=== PATIENT | female | born 1980 | race Caucasian/White ===

== ENCOUNTER 2017-01-10 02:50 | Inpatient (IN) | payer BC ==
[~2017-01-10] VITALS: Ht 165.1 cm; Wt 70.8 kg
[2017-01-10] MEDS ORDERED: OXYTOCIN/NORMAL SALINE 1,000 ML IV SCH ×2 (02:55→13:17)
[2017-01-10] MEDS ORDERED: NALBUPHINE HCL 10 MG/ML AMP IVP PRN (03:00)
[2017-01-10] MEDS ORDERED: TERBUTALINE SULFATE 1 MG/ML VIAL SUBCUT ONE (03:00)
[2017-01-10 05:12] LABS: BASOPHILS % (AUTO) 0.7 % (0.0-2.0); EOSINOPHILS # (AUTO) 0.1 K/uL (0.0-0.4); EOSINOPHILS % (AUTO) 1.4 % (0.0-4.0); HEMATOCRIT 28.7 % (36-48); LYMPHOCYTES # (AUTO) 2.6 K/uL (1.0-5.5); LYMPHOCYTES % (AUTO) 28.8 % (20.5-51.5); MEAN CORPUSCULAR HEMOGLOBIN 24 pg (27-31); MEAN CORPUSCULAR HGB CONC 31 % (32-36); MEAN CORPUSCULAR VOLUME 75 fL (79.0-98.0); MONOCYTES # (AUTO) 0.6 K/uL (0.0-1.0); MONOCYTES % (AUTO) 7.2 % (1.7-9.3); NEUTROPHILS # (AUTO) 5.5 K/uL (1.8-7.7); NEUTROPHILS % (AUTO) 61.9 % (40.0-70.0); PLATELET COUNT (AUTO) 221 K/uL (130-430); RED BLOOD CELL COUNT(AUTO) 3.81 MIL/uL (4.2-6.2); RED CELL DISTRIBUTION WIDTH 15.3 % (9.0-15.0); WHITE BLOOD COUNT (AUTO) 8.9 K/uL (4.8-10.8)
[2017-01-10 05:13] LABS: BASOPHILS # (AUTO) 0.1 K/uL (0.0-0.2)
[2017-01-10 07:02] VITALS: BP_SYST 120
[2017-01-10] MEDS: LEVOTHYROXINE SODIUM 0.025 MG TABLET PO SCH (07:30)
[2017-01-10] MEDS: LR 1,000 ML IV SCH ×2 (09:13→10:39)
[2017-01-10] MEDS ORDERED: FENT2mCg/mL-ROPIVA0.2%/NS EPID 150 ML EP ONE (10:36)
[2017-01-10] MEDS ORDERED: LR 500 ML IV ONE (11:34)
[2017-01-10] MEDS ORDERED: FENT2mCg/mL-ROPIVA0.2%/NS EPID 150 ML EP SCH (11:45)
[2017-01-10] MEDS ORDERED: ePHEDrine sulfate 50 MG/ML VIAL IVP PRN (11:45)
[2017-01-10] MEDS ORDERED: OXYTOCIN/NORMAL SALINE 1,000 ML IV ONE (13:17)
[2017-01-10] MEDS ORDERED: GLYCERIN/WITCH HAZEL (TUCKS PADS) TP PRN (13:30)
[2017-01-10] MEDS ORDERED: IBUPROFEN 800 MG TABLET PO PRN (13:30)
[2017-01-10] MEDS ORDERED: DOCUSATE SODIUM 100 MG CAPSULE PO PRN (13:30)
[2017-01-10] MEDS ORDERED: OXYCODONE/ACETAMINOPHEN 5-325 TABLET PO PRN ×4 (13:30)
[2017-01-10] MEDS ORDERED: ANUSOL 1 EA SUPP.RECT (PREPARATION H) RC PRN (13:30)
[2017-01-10] MEDS ORDERED: MEASLES,MUMPS&RUBELLA VACC/PF 12500 UNIT/0.5 ML VIAL SUBQ PRN (13:30)
[2017-01-10] MEDS ORDERED: RHO(D) IMMUNE GLOBULIN/MALTOSE 1500 UNITS/1.3 ML (WINHRO) IM PRN (13:30)
[2017-01-10] MEDS ORDERED: LANOLIN 7 GM OINT. TP PRN (13:30)
[2017-01-10] MEDS ORDERED: SENNOSIDES/DOCUSATE SODIUM 1 TAB TABLET(SENOKOT-S) PO PRN (13:30)
[2017-01-10] MEDS ORDERED: DERMOPLAST SPRAY TP PRN (13:30)
[2017-01-10] MEDS ORDERED: HYDROCORTISONE 0.5%, 28.35 GM TOPICAL CREAM TP PRN (13:30)
[2017-01-10] MEDS ORDERED: METHYLERGONOVINE MALEATE 0.2 MG TABLET PO PRN (13:30)
[2017-01-10] MEDS: IBUPROFEN 800 MG TABLET PO PRN ×2 (18:00→23:56)
[2017-01-10] MEDS ORDERED: TEMAZEPAM 15 MG CAPSULE PO PRN (21:00)
[2017-01-11] MEDS: LEVOTHYROXINE SODIUM 0.025 MG TABLET PO SCH (06:06)
[2017-01-11] MEDS: IBUPROFEN 800 MG TABLET PO PRN ×2 (06:07→11:54)
[2017-01-11 07:13] LABS: HEMOGLOBIN 7.6 g/dL (12.0-16.0)
[2017-01-11] MEDS ORDERED: MINERAL OIL 30 ML UDC PO ONE (15:20)
== END 2017-01-11 15:30 | disposition home or self-care (01) | DRG 775 ==
LOC: SPU 02:50
PROVIDERS: ADMIT Obstetrics & Gynecology; ATTEND Obstetrics & Gynecology
PROC: 10E0XZZ Delivery of Products of Conception, External Approach (ICD-10-PCS; principal; 2017-01-10)
PROC: 0KQM0ZZ Repair Perineum Muscle, Open Approach (ICD-10-PCS; 2017-01-10)
PROC: 3E0P3VZ Introduction of Hormone into Female Reproductive, Percutaneous Approach (ICD-10-PCS; 2017-01-10)
PROC: 3E0R3BZ Introduction of Anesthetic Agent into Spinal Canal, Percutaneous Approach (ICD-10-PCS; 2017-01-10)
PROC: 00HU33Z Insertion of Infusion Device into Spinal Canal, Percutaneous Approach (ICD-10-PCS; 2017-01-10)
PROC: 3E0134Z Introduction of Serum, Toxoid and Vaccine into Subcutaneous Tissue, Percutaneous Approach (ICD-10-PCS; 2017-01-10)
DX: O99.284 Endocrine, nutritional and metabolic diseases complicating childbirth (principal); E03.9 Hypothyroidism, unspecified; O99.52 Diseases of the respiratory system complicating childbirth; J47.9 Bronchiectasis, uncomplicated; O70.1 Second degree perineal laceration during delivery; Z3A.40 40 weeks gestation of pregnancy; Z37.0 Single live birth; O09.523 Supervision of elderly multigravida, third trimester; Z23 Encounter for immunization
CPT/HCPCS: 36415; 85018-TC; 85025; 86592; 86886; 86900; 86901; 88305; J2300; J2590; J3010; J7120